=== PATIENT | female | born 1985 | race Caucasian/White ===

== ENCOUNTER → 2016-04-05 | Outpatient (CLI) | payer OTHER ==
[2016-04-05 09:00] LABS: BASO % 0 % (0-3); EOS % 1 % (0-3); HEMATOCRIT 36.8 % (36.0-47.0); HEMOGLOBIN 12.2 g/dL (12.0-15.5); LYMPH # 2.2 x10^3/uL (1.0-4.8); LYMPH % 25 % (24-48); MEAN CORPUSCULAR HEMOGLOBIN 31 pg (25-35); MEAN CORPUSCULAR HGB CONC 33 g/dL (31-37); MEAN CORPUSCULAR VOLUME 94 fL (79-100); MONO % 6 % (0-9); NEUT % 69 % (31-73); PLATELET COUNT 214 x10^3/uL (140-400); RED BLOOD COUNT 3.92 x10^6/uL (3.50-5.40); RED CELL DISTRIBUTION WIDTH 13.1 % (11.5-14.5); WHITE BLOOD COUNT 8.8 x10^3/uL (4.0-11.0)
== END | disposition home or self-care (01) ==
LOC: LAB 07:28
PROVIDERS: ATTEND Obstetrics & Gynecology
DX: O09.90 Supervision of high risk pregnancy, unspecified, unspecified trimester (principal)
CPT/HCPCS: 36415; 82950; 85027

== ENCOUNTER 2016-06-21 22:55 | Inpatient (IN) | payer OTHER ==
[~2016-06-21] VITALS: Ht 162.6 cm; Wt 75.7 kg
[2016-06-21] MEDS ORDERED: IV RINGERS,LACTATED 1000ML 1,000 ML IV SCH ×2 (23:15→23:45)
[2016-06-21 23:22] LABS: BILIRUBIN,URINE NEGATIVE (NEG); GLUCOSE,URINE NEGATIVE (NEG); NITRITE,URINE NEGATIVE (NEG); PROTEIN,URINE NEGATIVE (NEG-TRACE); UROBILINOGEN,URINE 0.2 mg/dL (0.2 mg/dL)
[2016-06-21 23:29] LABS: BACTERIA,URINE MODERATE /HPF (0-FEW); RBC,URINE 0 /HPF (0-2); SQUAMOUS EPITHELIAL CELL,UR MANY /LPF
[2016-06-21] MEDS ORDERED: fentaNYL PF VIAL 100 MCG/2 ML VIAL IV PRN (23:30)
[2016-06-21] MEDS ORDERED: IBUPROFEN 600 MG TABLET. PO PRN (23:30)
[2016-06-21] MEDS ORDERED: OXYTOCIN 30 UNIT/500 ML PREMIX 500 ML IV PRN (23:30)
[2016-06-21] MEDS ORDERED: 0.9 % SODIUM CHLORIDE 10 ML DISP.SYRIN. IV PRN (23:30)
[2016-06-21] MEDS ORDERED: TERBUTALINE 1 MG/ML VIAL. SQ PRN (23:30)
[2016-06-21] MEDS ORDERED: LIDOCAINE 1% PF 30 ML VIAL. INJ PRN (23:30)
[2016-06-21] MEDS ORDERED: PENICILLIN G K 5,000,000 UNIT in IV NORMAL SALINE 100ML 100 ML IV ONE (23:45)
[2016-06-21 23:55] LABS: HEMATOCRIT 36.4 % (36.0-47.0); HEMOGLOBIN 12.1 g/dL (12.0-15.5); RED BLOOD COUNT 3.92 x10^6/uL (3.50-5.40); RED CELL DISTRIBUTION WIDTH 12.9 % (11.5-14.5); WHITE BLOOD COUNT 13.9 x10^3/uL (4.0-11.0)
[2016-06-22] MEDS ORDERED: L&D EPIDURAL CASSETTE 100 ML EP ONE (00:28)
[2016-06-22] MEDS ORDERED: ROPIVacaine 0.2% IN 0.9%NACL PF 40 MG/20 ML DISP.SYRIN. ONE ×2 (00:28→06:00)
[2016-06-22] MEDS ORDERED: OXYTOCIN in NORMAL SALINE PREMIX 30 UNIT/500 ML BAG. IV ONE (01:00)
[2016-06-22] MEDS ORDERED: L&D EPIDURAL CASSETTE 100 ML PUMP.RESVR. EP ONE (01:00)
[2016-06-22] MEDS ORDERED: IV RINGERS,LACTATED 1000ML 1,000 ML IV PRN (01:30)
[2016-06-22] MEDS ORDERED: ePHEDrine PF IN SALINE 50 MG/5 ML DISP.SYRIN IV PRN (01:30)
[2016-06-22] MEDS ORDERED: ONDANSETRON PF 4 MG/2 ML VIAL. IV PRN (01:30)
[2016-06-22] MEDS ORDERED: L&D EPIDURAL CASSETTE 100 ML EP PRN (01:30)
[2016-06-22] MEDS ORDERED: NALOXONE 0.4 MG/ML VIAL. IV PRN (01:30)
[2016-06-22] MEDS ORDERED: ROPIVacaine 0.2% PF 10 ML VIAL. EPI ONE (02:00)
[2016-06-22] MEDS ORDERED: fentaNYL PF VIAL 100 MCG/2 ML VIAL EPI ONE (02:00)
--- NOTE | 2016-06-22 03:52 | PDOC1 ---
OB - History Hx of Present Care: Good Care Ultrasounds: Normal mid trimester US Obstetrical Complications: None Medical Complications: None Past Family/Social History * Past Medical, Surgical, Family and Obstetric Histories reviewed from chart. Rubella: Immune RPR/VDRL: Negative GBS Status: Positive HBsAG: Negative OB - Chief Complaint & HPI Date of Admission: Date of Admission: June 21, 2016 at 22:55 Chief Complaint/History : 3 Para: 1 EGA: 38 Reason for admission: active labor Admission Nurse Assessment Rev: Yes Problems: OB - Admission Exam Physical Exam Vitals: VS - Last 72 Hours, by Label Date Time Temp Pulse Resp B/P (MAP) Pulse Ox O2 Delivery O2 Flow Rate FiO2 06/22/16 00:21 20 Room Air HEENT: Normal Heart: Regular Rate Lungs: Clear Abdomen: Gravid, Non tender, Soft Extremities: Edema Reflexes: Normal Cervical Dilatation: 3cm Effacement: 75% Station: -2 Membranes: Intact Heart Rate: Normal Accelerations: Accelerations Present Decelerations: No decelerations Contractions on Admission: < 5 Minutes Apart Intensity: Moderate Text A: 38 wks IUP Active labor GBS positive P: Admit for labor management. Start Pen G prophylaxis. OLEG ARAUJO Jr, MD June 22, 2016 03:52
--- NOTE | 2016-06-22 03:54 | PDOC ---
VAGINAL DELIVERY DATE DATE: 06/22/16 TIME: 03:52 : 3 Para: 2 EGA: 38 VAGINAL DELIVERY: VTX VACCUM ASSISTED: Yes NUMBER OF PULLS 4 NUMBER OF POP OFFS 2 MAXIMUM PRESSURE 600 mmhg PLACENTA: Spontaneous 8/9 SEX: Male WEIGHT Weight [ 3550 gm] Nuchal Cord: Yes, Times 1 Amniotic Fluid: Clear PAIN: Epidural EPISIOTOMY: No EXTENSION: Yes (2nd degree midline laceration) REPAIRED WITH 2-0 vicryl EBL 300 ml COMPLICATIONS none CONDITION pt. stable Signs of Intrauterine Infectio: None Shoulder Dystocia: No Problems: OLEG ARAUJO Jr, MD June 22, 2016 03:54
[2016-06-22] MEDS ORDERED: MMR per PROTOCOL. MC PRN (04:00)
[2016-06-22] MEDS ORDERED: MAG HYDROX/ALUMINUM HYD/SIMETH 30 ML ORAL.SUSP PO PRN (04:00)
[2016-06-22] MEDS ORDERED: PHENYLEPH/MINERAL OIL/PETROLAT RECTAL OINTMENT 28GM TUBE. RC PRN (04:00)
[2016-06-22] MEDS ORDERED: ACETAMINOPHEN 325 MG TABLET. PO PRN (04:00)
[2016-06-22] MEDS ORDERED: MAGNESIUM HYDROXIDE 2,400 MG/30 ML ORAL.SUSP. PO PRN (04:00)
[2016-06-22] MEDS ORDERED: 0.9 % SODIUM CHLORIDE 10 ML DISP.SYRIN. IV PRN (04:00)
[2016-06-22] MEDS ORDERED: BENZOCAINE 20% TOPICAL AEROSOL SPRAY 57GM CAN. TP PRN (04:00)
[2016-06-22] MEDS ORDERED: diphenhydrAMINE HCL 25 MG CAPSULE PO PRN (04:00)
[2016-06-22] MEDS ORDERED: PENICILLIN G K 2,500,000 UNIT in IV NORMAL SALINE 50ML 50 ML IV SCH (04:00)
[2016-06-22] MEDS ORDERED: SIMETHICONE 80 MG TAB.CHEW PO PRN (04:00)
[2016-06-22] MEDS ORDERED: OXYTOCIN 30 UNIT/500 ML PREMIX 500 ML IV PRN (04:00)
[2016-06-22] MEDS ORDERED: ZOLPIDEM 5 MG TABLET. PO PRN (04:00)
[2016-06-22] MEDS ORDERED: HYDROCORTISONE 1% TOPICAL OINTMENT 30GM TUBE. TP PRN (04:00)
[2016-06-22] MEDS: oxyCODONE/APAP 5/325 1 TAB TABLET PO PRN ×3 (08:05→21:17)
[2016-06-22 09:00] VITALS: BP 106/64
[2016-06-22 10:00] VITALS: BP 114/65
[2016-06-22] MEDS: IBUPROFEN 800 MG TABLET. PO PRN ×2 (12:11→20:01)
[2016-06-22] MEDS: DOCUSATE SODIUM 100 MG CAPSULE. PO PRN ×2 (12:11→20:01)
[2016-06-22 13:20] VITALS: BP 117/67
[2016-06-22] MEDS ORDERED: PNV1TABL25 PO (19:27)
[2016-06-22] MEDS ORDERED: ACET325T9 PO (19:27)
[2016-06-22 20:00] VITALS: BP 115/74
[2016-06-23 00:30] VITALS: BP 106/61
[2016-06-23] MEDS: oxyCODONE/APAP 5/325 1 TAB TABLET PO PRN ×5 (01:36→20:29)
[2016-06-23] MEDS: IBUPROFEN 800 MG TABLET. PO PRN ×2 (05:03→13:02)
[2016-06-23 05:10] VITALS: BP 115/70
[2016-06-23 05:25] LABS: BASO % 0 % (0-3); EOS % 1 % (0-3); HEMATOCRIT 32.4 % (36.0-47.0); HEMOGLOBIN 10.9 g/dL (12.0-15.5); LYMPH # 2.7 x10^3/uL (1.0-4.8); LYMPH % 25 % (24-48); MEAN CORPUSCULAR HEMOGLOBIN 31 pg (25-35); MEAN CORPUSCULAR HGB CONC 34 g/dL (31-37); MEAN CORPUSCULAR VOLUME 93 fL (79-100); MONO % 6 % (0-9); NEUT % 68 % (31-73); PLATELET COUNT 144 x10^3/uL (140-400); RED BLOOD COUNT 3.48 x10^6/uL (3.50-5.40); RED CELL DISTRIBUTION WIDTH 13.2 % (11.5-14.5)
[2016-06-23] MEDS ORDERED: FERROUS SULFATE 325 MG TABLET. PO SCH (08:00)
[2016-06-23] MEDS: DOCUSATE SODIUM 100 MG CAPSULE. PO PRN ×2 (08:24→20:28)
[2016-06-23 11:48] VITALS: BP 115/71
--- NOTE | 2016-06-23 13:24 | PDOC ---
Provider Note Provider Note Doing well' VSS Uterus NTTP FU in AM JAN RICH MD June 23, 2016 13:24
[2016-06-23] MEDS ORDERED: DIPHTH,PERTUSS(ACELL),TET TOX 0.5 ML DISP.SYRIN. VAX IM ONE (14:00)
[2016-06-23] MEDS ORDERED: medroxyPROGESTERone IM 150 MG/ML VIAL. IM ONE (14:00)
[2016-06-23 18:22] VITALS: BP 120/70
[2016-06-23 20:30] VITALS: BP 122/74
[2016-06-23 22:13] LABS: RPR REFLEX Non Reactive (Non Reactive)
[2016-06-24] MEDS: IBUPROFEN 800 MG TABLET. PO PRN (00:56)
[2016-06-24] MEDS: oxyCODONE/APAP 5/325 1 TAB TABLET PO PRN ×2 (04:23→09:44)
[2016-06-24 04:25] VITALS: BP 108/63
--- NOTE | 2016-06-24 09:39 | PDOC ---
OB Progress Note Date of Service 06/24/16 Time of Evaluation 0940 Notes Pt. feeling well. Pain controlled. No complaints. Lab Laboratory Tests Test 06/23/16 04:35 White Blood Count 11.0 x10^3/uL (4.0-11.0) Red Blood Count 3.48 x10^6/uL (3.50-5.40) Hemoglobin 10.9 g/dL (12.0-15.5) Hematocrit 32.4 % (36.0-47.0) Mean Corpuscular Volume 93 fL (79-100) Mean Corpuscular Hemoglobin 31 pg (25-35) Mean Corpuscular Hemoglobin Concent 34 g/dL (31-37) Red Cell Distribution Width 13.2 % (11.5-14.5) Platelet Count 144 x10^3/uL (140-400) Neutrophils (%) (Auto) 68 % (31-73) Lymphocytes (%) (Auto) 25 % (24-48) Monocytes (%) (Auto) 6 % (0-9) Eosinophils (%) (Auto) 1 % (0-3) Basophils (%) (Auto) 0 % (0-3) Neutrophils # (Auto) 7.5 x10^3uL (1.8-7.7) Lymphocytes # (Auto) 2.7 x10^3/uL (1.0-4.8) Monocytes # (Auto) 0.7 x10^3/uL (0.0-1.1) Eosinophils # (Auto) 0.1 x10^3/uL (0.0-0.7) Basophils # (Auto) 0.0 x10^3/uL (0.0-0.2) Medications Current Medications Ringer's Solution 1,000 ml @ 125 mls/hr Q8H IV Last administered on 06/22/16t 00:24; Start 06/21/16 at 23:15; Stop 06/22/16 at 19:18; Status DC Sodium Chloride (Normal Saline Flush) 3 ml QSHIFT PRN IV AFTER MEDS AND BLOOD DRAWS; Start 06/21/16 at 23:30; Stop 06/22/16 at 19:18; Status DC Ringer's Solution 1,000 ml @ 125 mls/hr Q8H IV ; Start 06/21/16 at 23:45; Stop 06/22/16 at 19:18; Status DC Fentanyl Citrate (Fentanyl 2ml Vial) 100 mcg PRN Q20MIN PRN IV Labor pain Last administered on 06/22/16 00:21; Start 06/21/16 at 23:30; Stop 06/22/16 at 19:18; Status DC Terbutaline Sulfate (Brethine) 0.25 mg 1X PRN PRN SQ SEE COMMENTS; Start at 23:30; Stop 06/22/16 at 19:18; Status DC Lidocaine HCl 30 ml 1X PRN PRN INJ SEE COMMENTS; Start 06/21/16 at 23:30; Stop 06/22/16 at 19:18; Status DC Oxytocin/Sodium Chloride 500 ml @ 0 mls/hr CONT PRN PRN IV Post delivery bleeding; Start 06/21/16 at 23:30 Ibuprofen (Motrin) 600 mg PRN Q6HRS PRN PO PAIN; Start 06/21/16 at 23:30; Stop 06/22/16 at 19:18; Status DC Penicillin G Potassium [id number] unit/Sodium Chloride 100 ml @ 100 mls/hr 1X ONCE IV Last administered on 06/22/16 00:22; Start 06/21/16 at 23:45; Stop at 19:18; Status DC Penicillin G Potassium [id number] unit/Sodium Chloride 50 ml @ 100 mls/hr Q4H IV ; Start 06/22/16 at 04:00; Stop 06/22/16 at 19:18; Status DC Ropivacaine/ Fentanyl/NS 100 ml @ As Directed STK-MED ONCE EP ; Start 06/22/16 at 00:28; Stop 06/22/16 at 19:18; Status DC Ropivacaine 40 mg STK-MED ONCE .ROUTE ; Start 06/22/16 at 00:28; Stop 06/22/16 at 19:18; Status DC Ringer's Solution 1,000 ml @ 0 mls/hr Q0M PRN IV low bp Last administered on 01:48; Start 06/22/16 at 01:30; Stop 06/22/16 at 19:18; Status DC Ephedrine Sulfate 10 mg PRN Q2MIN PRN IV IF SBP<90; Start 06/22/16 at 01:30; Stop 06/22/16 at 19:18; Status DC Naloxone HCl (Narcan) 0.04 mg PRN Q1MIN PRN IV SEE COMMENTS; Start 06/22/16 at 01:30; Stop 06/22/16 at 19:18; Status DC Fentanyl Citrate (Fentanyl 2ml Vial) 100 mcg 1X ONCE EPI ; Start 06/22/16 at 02: 00; Stop 06/22/16 at 19:18; Status DC Ropivacaine/ Fentanyl/NS 100 ml @ 14 mls/hr CONT PRN EP PAIN; Start 06/22/16 at 01:30; Stop 06/22/16 at 19:18; Status DC Ondansetron HCl (Zofran) 4 mg PRN Q6HRS PRN IV NAUSEA/VOMITING; Start 06/22/16 at 01:30; Stop 06/22/16 at 19:18; Status DC Ropivacaine (Naropin 0.2%) 20 ml 1X ONCE EPI ; Start 06/22/16 at 02:00; Stop 06/22/16 at 19:18; Status DC Sodium Chloride (Normal Saline Flush) 10 ml QSHIFT PRN IV AFTER MEDS AND BLOOD DRAWS; Start 06/22/16 at 04:00; Stop 06/22/16 at 19:18; Status DC Oxytocin/Sodium Chloride 500 ml @ 62.5 mls/hr CONT PRN IV SEE I/O RECORD; Start 06/22/16 at 04:00; Stop 06/22/16 at 11:59; Status DC Acetaminophen (Tylenol) 650 mg PRN Q6HRS PRN PO MILD PAIN / TEMP; Start at 04:00 Ibuprofen (Motrin) 800 mg PRN Q8HRS PRN PO INFLAMMATION/PAIN PREVENTION Last administered on 06/24/16 00:56; Start 06/22/16 at 04:00 Docusate Sodium (Colace) 100 mg PRN BID PRN PO CONSTIPATION Last administered on 06/23/16 20:28; Start 06/22/16 at 04:00 Magnesium Hydroxide (Milk Of Magnesia) 2,400 mg PRN DAILY PRN PO CONSTIPATION; Start 06/22/16 at 04:00 Al Hydroxide/Mg Hydroxide (Mylanta Plus Xs) 30 ml PRN Q4HRS PRN PO HEARTBURN / GAS; Start 06/22/16 at 04:00 Simethicone (Gas-X) 80 mg PRN AFTMEALHC PRN PO GAS / BLOATING; Start 06/22/16 at 04:00 Diphenhydramine HCl (Benadryl) 25 mg PRN Q6HRS PRN PO ITCHING; Start 06/22/16 at 04:00 Benzocaine (Americaine) 1 spray PRN QID PRN TP TOPICAL PAIN Last administered on 06/23/16 20:31; Start 06/22/16 at 04:00 Phenyleph/Shark Oil/Min Oil/Petrol (Preparation H) 1 antwon PRN QID PRN RC RECTAL PAIN; Start 06/22/16 at 04:00 Hydrocortisone (Cortaid) 1 antwon PRN QID PRN TP PERINEAL PAIN; Start 06/22/16 at 04:00 Ferrous Sulfate (Feosol) 325 mg BIDWMEALS PO ; Start 06/23/16 at 08:00 Zolpidem Tartrate (Ambien) 5 mg PRN QHS PRN PO INSOMNIA, MAY REPEAT X1; Start 06/22/16 at 04:00 Info (Do NOT chart on this placeholder) 1 ea 1X PRN PRN MC SEE COMMENTS; Start 06/22/16 at 04:00 Info (Do NOT chart on this placeholder) 1 ea 1X PRN PRN MC SEE COMMENTS; Start 06/22/16 at 04:00; Stop 06/22/16 at 19:18; Status DC Oxycodone/ Acetaminophen (Percocet 5/325) 2 tab PRN Q4HRS PRN PO MODERATE PAIN , SEVERE PAIN Last administered on 06/24/16 04:23; Start 06/22/16 at 04:00 Medroxyprogesterone Acetate (Depo-Provera Im) 150 mg 1X ONCE IM ; Start at 14:00; Stop 06/23/16 at 14:01; Status DC Diphtheria/ Tetanus/Acell Pertussis (Boostrix) 0.5 ml ONCE ONCE VAX IM ; Start 06/23/16 at 14:00; Stop 06/23/16 at 14:01; Status DC Ropivacaine 40 mg STK-MED ONCE .ROUTE ; Start 06/22/16 at 06:00; Stop 06/24/16 at 07:43; Status DC Ropivacaine/ Fentanyl/NS (Oyntyegh-Tfwyp-NR 3 Mcg-0.1%) 100 ml STK-MED ONCE EP ; Start 06/22/16 at 01:00; Stop 06/24/16 at 08:09; Status DC Oxytocin/Sodium Chloride (Oxytocin Premix Infusion) 30 unit STK-MED ONCE IV ; Start 06/22/16 at 01:00; Stop 06/24/16 at 08:09; Status DC Active Scripts Active Reported Tablet (Pnv Cmb#95/Ferrous Fumarate/Fa) 1 Each Tablet 1 Each PO DAILY Tylenol (Acetaminophen) 325 Mg Tablet 650 Mg PO PRN Q4-6HRS PRN Exam Abd: soft, non tender, fundus firm Assessment PPD#2 s/p Plan of Care: See new orders (D/ c home.) OLEG ARAUJO Jr, MD June 24, 2016 09:39
--- NOTE | 2016-06-24 09:40 | DISCH ---
DISCHARGE INSTRUCTIONS Condition on Discharge Condition on Discharge: Stable Activity After Discharge Activity Instructions for Disc: Activity as tolerated Lifting Instructions after Dis: No heavy lifting Driving Instructions after Dis: Do not drive today Diet after Discharge Diet after Discharge: Regular Contacting the DRStew after DC Call your doctor for: Concerns you may have Follow-Up Follow up with: Dr. Leon in 6 weeks. OLEG LEON Jr, MD June 24, 2016 09:40
[2016-06-24] MEDS ORDERED: OXYC-323 PO (09:41)
[2016-06-24] MEDS ORDERED: IBUP-1060 PO (09:41)
[2016-06-24 11:45] VITALS: BP 118/68
== END 2016-06-24 12:16 | disposition home or self-care (01) | DRG 775 ==
LOC: 3 SO LND 22:55 → OBSVTOIN 22:55 → 3 SO LND 06-22 14:19
PROVIDERS: ADMIT Obstetrics & Gynecology; ATTEND Obstetrics & Gynecology
PROC: 10D07Z6 Extraction of Products of Conception, Vacuum, Via Natural or Artificial Opening (ICD-10-PCS; principal; 2016-06-22)
PROC: 0KQM0ZZ Repair Perineum Muscle, Open Approach (ICD-10-PCS; 2016-06-22)
PROC: 3E0S3CZ (ICD-10-PCS; 2016-06-22)
PROC: 00HU33Z Insertion of Infusion Device into Spinal Canal, Percutaneous Approach (ICD-10-PCS; 2016-06-22)
DX: O99.824 Streptococcus B carrier state complicating childbirth (principal); O70.1 Second degree perineal laceration during delivery; O69.81X0 Labor and delivery complicated by cord around neck, without compression, not applicable or unspecified; Z3A.38 38 weeks gestation of pregnancy; Z37.0 Single live birth
CPT/HCPCS: 36415; 81001; 85027; 86593; 86850; 86900; 86901; 87086; J2540; J2590; J2795; J3010; J7120

== ENCOUNTER → 2017-03-28 | Outpatient (CLI) | payer OTHER ==
[2017-03-28 12:11] LABS: ADD MAN DIFF? NO
[2017-03-28 12:20] LABS: BASO % 1 % (0-3); EOS # 0.1 x10^3/uL (0.0-0.7); EOS % 2 % (0-3); HEMATOCRIT 42.9 % (36.0-47.0); HEMOGLOBIN 14.5 g/dL (12.0-15.5); LYMPH # 2.2 x10^3/uL (1.0-4.8); LYMPH % 40 % (24-48); MEAN CORPUSCULAR HEMOGLOBIN 30 pg (25-35); MEAN CORPUSCULAR HGB CONC 34 g/dL (31-37); MEAN CORPUSCULAR VOLUME 88 fL (79-100); MONO # 0.4 x10^3/uL (0.0-1.1); MONO % 7 % (0-9); NEUT # 2.8 x10^3uL (1.8-7.7); NEUT % 51 % (31-73); PLATELET COUNT 328 x10^3/uL (140-400); RED BLOOD COUNT 4.86 x10^6/uL (3.50-5.40); RED CELL DISTRIBUTION WIDTH 13.6 % (11.5-14.5); WHITE BLOOD COUNT 5.6 x10^3/uL (4.0-11.0)
[2017-03-28 12:31] LABS: ALBUMIN 4.1 g/dL (3.4-5.0); ALBUMIN/GLOBULIN RATIO 1.1 (1.0-1.7); ALK PHOS 51 U/L (46-116); ALT (SGPT) 18 U/L (14-59); ANION GAP 9 (6-14); AST (SGOT) 13 U/L (15-37); BLOOD UREA NITROGEN 9 mg/dL (7-20); BUN/CREATININE RATIO 15 (6-20); CALCIUM 9.1 mg/dL (8.5-10.1); CARBON DIOXIDE 27 mmol/L (21-32); CHLORIDE 105 mmol/L (98-107); CREATININE 0.6 mg/dL (0.6-1.0); GFR 117.4; GLUCOSE 81 mg/dL (70-99); POTASSIUM 3.7 mmol/L (3.5-5.1); SODIUM 141 mmol/L (136-145); TOTAL BILIRUBIN 0.6 mg/dL (0.2-1.0); TOTAL PROTEIN 7.8 g/dL (6.4-8.2)
[2017-03-28 12:42] LABS: THYROID STIM HORMONE (TSH) 0.358 uIU/mL (0.358-3.74)
[2017-03-28 13:29] LABS: SEDIMENTATION RATE 0 (0-25)
== END | disposition home or self-care (01) ==
LOC: LAB 12:00
DX: R51 Headache (principal)
CPT/HCPCS: 36415; 80053; 84443; 85025; 85651

== ENCOUNTER → 2017-04-08 | Outpatient (CLI) | payer OTHER ==
[2017-04-08] MEDS: GADOBUTROL 7.5 MMOL/7.5 ML VIAL IV ×2 (11:42)
== END | disposition home or self-care (01) ==
LOC: MRI 10:02
DX: M51.44 Schmorl's nodes, thoracic region (principal); D18.09 Hemangioma of other sites; R51 Headache
CPT/HCPCS: 70553; 72157; A9585

== ENCOUNTER → 2017-04-23 | Outpatient (CLI) | payer OTHER ==
[2017-04-23 16:47] LABS: NEG OBC UR NEG; POS OBC UR POS; U PREG PATIENT NEGATIVE (NEG)
== END | disposition home or self-care (01) ==
LOC: LAB 16:24
DX: R51 Headache (principal)
CPT/HCPCS: 81025

== ENCOUNTER → 2017-05-09 | Outpatient (CLI) | payer OTHER | END | disposition home or self-care (01) | LOC: PNCL 10:28 | DX: M54.9 Dorsalgia, unspecified (principal); Z98.890 Other specified postprocedural states; Z79.891 Long term (current) use of opiate analgesic; Z88.8 Allergy status to other drugs, medicaments and biological substances | CPT/HCPCS: 99213 ==

== ENCOUNTER → 2017-05-28 | Outpatient (CLI) | payer OTHER | END | disposition home or self-care (01) | LOC: PNCL 13:00 | DX: M51.34 Other intervertebral disc degeneration, thoracic region (principal) | CPT/HCPCS: 99212 ==

== ENCOUNTER → 2017-06-05 | Outpatient (CLI) | payer OTHER ==
[~2017-06-05] MED LIST: IOHEXOL 180 MG/ML 10 ML VIAL.; methylPREDNISolone ACETATE 40 MG/ML VIAL.; methylPREDNISolone ACETATE 80 MG/ML VIAL.
== END ==
LOC: PNCL 07:33
DX: M51.14 Intervertebral disc disorders with radiculopathy, thoracic region (principal)
CPT/HCPCS: 62321; 62323; J1030; J1040; Q9965